=== PATIENT | male | born 1955 | race Caucasian/White ===

== ENCOUNTER 2024-09-11 09:54 | Emergency (ER) | payer MEDICARE, OTHER ==
[~2024-09-11] VITALS: Ht 177.8 cm; Wt 108.6 kg
[2024-09-11 11:06] LABS: EOS # 0.03 K/mm3 (0.04-0.40); EOS % 0.3 % (0.0-4.0); HEMATOCRIT 37.4 % (42.0-52.0); HEMOGLOBIN 13.4 g/dL (13.5-18.0); LYMPH# 0.76 K/mm3 (1.50-4.00); MEAN CELL VOLUME 87 fl (78-100); MEAN CORPUSCULAR HEMOGLOBIN 31 pg (27-31); MEAN CORPUSCULAR HGB CONC 36 g/dL (33-37); MONO # 1.08 K/mm3 (0.20-0.80); NEU # 8.12 K/mm3 (1.40-6.50); PLATELET COUNT 212 K/mm3 (130-400); RED BLOOD COUNT 4.31 M/mm3 (4.20-5.60)
[2024-09-11 11:13] LABS: ALBUMIN 3.8 g/dL (3.4-4.8)
[2024-09-11 11:15] LABS: CALCIUM 9.8 mg/dL (8.3-10.5)
[2024-09-11 11:16] LABS: TOTAL PROTEIN 7.1 g/dL (6.2-8.1)
[2024-09-11 11:18] LABS: TOTAL BILIRUBIN 0.8 mg/dL (0.2-1.2)
[2024-09-11] MEDS ORDERED: BENZONATATE200 MG PO (11:42)
[2024-09-11] MEDS ORDERED: PROMETHAZINE-COD5 ML PO (11:42)
[2024-09-11] MEDS ORDERED: PREDNISONE20 M1 PO (11:42)
[2024-09-11 12:03] VITALS: BP 142/87
== END 2024-09-11 12:06 | disposition home or self-care (01) ==
LOC: ED 09:54
PROVIDERS: Physician Assistant
DX: J18.9 Pneumonia, unspecified organism (principal); E87.1 Hypo-osmolality and hyponatremia; E87.8 Other disorders of electrolyte and fluid balance, not elsewhere classified